=== PATIENT | male | born 2000 | race Caucasian/White ===

== ENCOUNTER 2021-02-21 14:21 | Emergency (ER) | payer OTHER, SELFPAY ==
--- NOTE | ~2021-02-21 | XR_ITS ---
EXAMINATION: XR hand LT min 3V, XR wrist LT min 3V EXAM DATE: 02/21/2021 15:00 INDICATION: Initial encounter following injury, with pain of the left hand, wrist. TECHNIQUE: Left hand frontal, lateral and oblique projections obtained and reviewed. Left wrist fron vilma, frontal with ulnar deviation, oblique and lateral projections obtained and reviewed. There is n o prior study for comparison. FINDINGS: There are acute closed posttraumatic fractures through the left 3rd, 4th and 5th proximal p halanges. The left 3rd proximal phalangeal fracture is along the proximal aspect of the shaft, appears to be ex tra-articular with mild angulation and displacement. The 4th proximal phalangeal fracture is also along the proximal aspect of the shaft, is nondisplaced and without angulation and also appears to be most likely extra-articular. The 5th proximal phalangeal fracture has similar appearing fracture along the proximal aspect of the shaft but another component which may extend into the metacarpophalangeal joint, possible interarticu lar. No displacement or angulation. There is soft tissue swelling overlying these fractures. The metacarpal and carpal bones are unremark able. IMPRESSION: Left 3rd through 5th proximal phalangeal fractures, 5th may have intra-articular compone nt at the MCP joint. Reviewed, dictated and finalized at location A. IMPRESSION: Left 3rd through 5th proximal phalangeal fractures, 5th may have i ntra-articular component at the MCP joint.
--- NOTE | ~2021-02-21 | XR_ITS ---
EXAMINATION: XR finger 4th LT min 2V EXAM DATE: 02/21/2021 15:24 INDICATION: Post-reduction, 4TH distal phalanx. TECHNIQUE: Frontal and lateral projections of the left 4th digit. Comparison is made to prior examin ation from left hand x-ray earlier same date. FINDINGS: The left 4th distal phalanx is in normal position, normal appearing joint space, has been reduced. Left 3rd through 5th proximal phalangeal fractures are unchanged. IMPRESSION: Status post left 4th distal phalangeal reduction. Reviewed, dictated and finalized at location A.
[2021-02-21 14:25] VITALS: BP 105/64; PULSE 61; RESP 16; TEMP 36.4; O2SAT 100
--- NOTE | 2021-02-21 14:56 | ED.FALL ---
HPI - Fall General Chief Complaint: Fall Stated Complaint: ARM INJURY Time Seen by Provider: 02/21/21 14:35 Source: patient Mode of arrival: ambulatory Limitations: no limitations History of Present Illness HPI Narrative: This is a 21 year old male that presents to the ER for left hand injury sustained just prior to arrival. Reports he fell off of his skateboard after running over a pipe. Denies hitting his head or loss of consciousness. Reports abrasions to the left knee and left wrist and hand. Pain with obvious deformity to the left fourth finger. Denies numbness. Related Data Allergies Allergy/AdvReac Type Severity Reaction Status Date / Time No Known Allergies Allergy Verified 02/21/21 14:37 Review of Systems Review of Systems: CONSTITUTIONAL: Denies fever MUSCULOSKELETAL: Reports joint pain and myalgia. Denies back pain NEUROLOGIC: Denies numbness, or weakness. All systems reviewed & are unremarkable except as noted in HPI and below PMFSH Past Medical History Medical History (Updated 02/21/21 @ 16:36 by Azalia Rivera PA-C) No active medical problems Social History Social History (Updated 02/21/21 @ 14:58 by Azalia Rivera PA-C) Smoking status: Never smoker Exam Narrative: GENERAL: Well-appearing, well-nourished, and in no acute distress. HEAD: Normocephalic, atraumatic. EYES: EOMI. NECK: Supple. No adenopathy or masses. No midline spinal tenderness CHEST: Clear to auscultation. No respiratory distress. No wheezes rales or rhonchi HEART: Regular rate and rhythm. No murmur heard. Normal peripheral pulses. BACK: No midline thoracic or lumbar spine tenderness EXTREMITIES: Normal range of motion, except decreased ROM in the left 4th finger with obvious deformity at the DIP joint. No edema. Normal radial pulses. Superficial abrasions to the left hand. Superficial abrasions to the left knee SKIN: Warm, dry, no rash. NEURO: No focal deficits. Alert and oriented x3. Cranial nerves II to XII grossly intact PSYCH: Normal mood and affect Course Consultations Consultation #1: Spoke with Dr. Lezama about patient and workup. Patient will be placed in a volar splint and finger splint on the DIP dislocation. He will follow up with patient in clinic Date: 02/21/21 Time: 16:25 Vital Signs Vital signs: Vital Signs Temperature 97.6 F 02/21/21 14:25 Pulse Rate 61 02/21/21 14:25 Respiratory Rate 16 02/21/21 14:25 Blood Pressure 105/64 02/21/21 14:25 Pulse Oximetry 100 02/21/21 14:25 Temperature 97.6 F 02/21/21 14:25 Pulse Rate 61 02/21/21 14:25 Respiratory Rate 16 02/21/21 14:25 Blood Pressure 105/64 02/21/21 14:25 Pulse Oximetry 100 02/21/21 14:25 Procedures Nerve Block Nerve Block 1: Nerve block date: 02/21/21 Nerve block time: 15:25 Local Anesthetic: lidocaine 1% Amount of anesthesia used (mL): 4 Side: left Nerve Blocks: digital Procedure Successful: Yes Patient Tolerated Procedure: well and no complications Orthopedic Joint Reduction Joint #1: Orthopedic Joint Reduction Date: 02/21/21 Orthopedic Joint Reduction Time: 15:25 Side: left Joint Reduction Location: finger Analgesia: nerve block Pre-Procedure Neuro Vascular Exam: normal Local Anesthesia: lidocaine 1% Amount of anesthesic used (mL): 4 Technique used: traction/counter-traction Post-reduction neuro exam: intact Post-reduction vascular: intact Post Reduction X-Ray Obtained: Yes Post Reduction X-Ray Results: reduced Splint Applied: Yes Patient Tolerated Procedure: well and no complications Orthopedic Splinting/Casting Injury #1: Splinting/Casting Date: 02/21/21 Splinting/Casting Time: 15:27 Side: left Upper Extremity Injury Location: hand Upper Extremity Immobilizer: volar splint Splint: customized in ED OCL: volar
[2021-02-21] MEDS: LIDOCAINE HCL 1% LOCAL INJ 20 ML VIAL (15:25)
[2021-02-21] MEDS: HYDROcodone/acetaminophen (*CRX) 5-325 MG TABLET 1 TAB PO (15:28)
[2021-02-21 17:35] VITALS: BP 119/65; PULSE 53; RESP 17; O2SAT 97
== END 2021-02-21 17:38 | disposition home or self-care (01) ==
PROVIDERS: Emergency Provider Emergency Medicine
DX: S63.295A Dislocation of distal interphalangeal joint of left ring finger, initial encounter (principal); S62.613A Displaced fracture of proximal phalanx of left middle finger, initial encounter for closed fracture; S62.645A Nondisplaced fracture of proximal phalanx of left ring finger, initial encounter for closed fracture; S62.617A Displaced fracture of proximal phalanx of left little finger, initial encounter for closed fracture; V00.131A Fall from skateboard, initial encounter; Y93.51 Activity, roller skating (inline) and skateboarding
CPT/HCPCS: 26725; 26770; 73110; 73130; 73140; 99285; A9270